=== PATIENT | female | born 1955 | race Caucasian/White ===

== ENCOUNTER → 2020-01-20 | Outpatient (CLI) | payer MEDICARE, BC ==
[~2020-01-20] MED LIST: MVI PO
== END ==
LOC: COL.RAD 11:22
DX: Q62.11 Congenital occlusion of ureteropelvic junction (principal)
CPT/HCPCS: A9562; J1940

== ENCOUNTER 2020-10-23 09:46 | Inpatient (IN) | payer MEDICARE, BC ==
[~2020-10-23] VITALS: Ht 170.2 cm; Wt 87.1 kg
[2020-10-23] MEDS ORDERED: PIQRAY1 EACH PO (13:00)
[2020-10-23] MEDS ORDERED: ELIQUIS 5MG PO (13:01)
[2020-10-23] MEDS ORDERED: HUMALOG PEN100 U/ML SQ (13:04)
[2020-10-23] MEDS ORDERED: CALCIUM CARBON650 M2 (13:05)
[2020-10-23] MEDS ORDERED: ONE-A-DAY ESSE1 EACH PO (13:06)
[2020-10-23] MEDS ORDERED: PRILOTC PO (13:07)
[2020-10-23 13:10] VITALS: BP 103/46; PULSE 79; TEMP 98.2
[2020-10-23 14:31] LABS: TROPONIN-I 0.215 ng/mL (0.000-0.035)
[2020-10-23 16:38] VITALS: BP 109/41; PULSE 80; TEMP 98.2
[2020-10-23 17:22] LABS: COLLECTION METHOD CLEAN CATCH
[2020-10-23 18:24] LABS: INR 1.7 (0.8-3.0); PROTHROMBIN TIME 19.5 SECONDS (9.7-12.8)
[2020-10-23 18:42] LABS: BUDDING YEAST Present /hpf; MUCOUS Present /lpf; PH 5 (5-8); SQUAMOUS EPITHELIAL 0-2 /hpf; URINE APPEARANCE Turbid; URINE BACTERIA None Seen /hpf; URINE BILIRUBIN Negative (NEGATIVE); URINE BLOOD 3+ (NEGATIVE); URINE CALCIUM OXALATE CRYSTAL Present /hpf; URINE COLOR Yellow; URINE GLUCOSE 1+ (NEGATIVE); URINE KETONE Negative (NEGATIVE); URINE LEUKOCYTE ESTERASE 3+ (NEGATIVE); URINE NITRATE Negative (NEGATIVE); URINE PROTEIN(semi-quant) 1+ (NEGATIVE); URINE UROBILINOGEN Negative (NEGATIVE)
[2020-10-23 19:30] VITALS: BP 104/50; PULSE 99; TEMP 99.1
--- NOTE | 2020-10-23 20:00 | NUR ---
PT ASSISTED TO BATHROOM AND BACK TO BED. PT A/O X3, HOB ELEVATED TO 60 DEGREE ANGLE. PT DENIES PAIN OR DISCOMFORT AND HAS PERSONAL BELONGINGS WITHIN REACH.
--- NOTE | 2020-10-23 21:51 | NUR ---
CRITICAL LAB VALUE: NOTIFIED LYNNETTE LYLE THAT PT'S TROPONIN IS 0.201. NO NEW ORDERS GIVEN.
[2020-10-23 23:30] VITALS: BP 97/42; PULSE 96; TEMP 98.5
[2020-10-24 03:30] VITALS: BP 124/49; PULSE 84; TEMP 98
--- NOTE | 2020-10-24 07:30 | NUR ---
SHIFT SUMMARY: AT THE BEGINNING OF SHIFT THE PT HAD CHILLS AND WAS COLD, BUT AFTER ABOUT AN HOUR SHE WAS FINE. PT DID GET UP TO THE BATHROOM AND HER GAIT WAS STEADY. NO C/O PAIN OR DISCOMFORT. PT ADVISED THAT SHE FELT MUCH BETTER THIS MORNING THAN SHE HAD. NO ISSUES OR CONCERNS.
--- NOTE | 2020-10-24 07:30 | NUR ---
PT AT PROCEEDURE. DR. ALCARAZ IN TO SEE PT. WILL COME BACK TOMORROW TO ROUND ON PT. SEE EMAR FOR NEW ORDERS.
[2020-10-24 08:12] VITALS: BP 112/56; PULSE 75; TEMP 97.9
--- NOTE | 2020-10-24 09:53 | NUR ---
SHAVONNE met with the patient to discuss discharge plan. The patient lives in [place] with her , Abraham ([phone]). She reports independence with ADLs and does not have any DME. The patient's primary care provider is Mckenna Kendrick APRN and she receives her medications from [facility]. She reports no difficulties obtaining her meds. The patient does not have a DPOA-HC, but she was interested in obtaining a form. SHAVONNE provided. The patient plans to return home with her upon discharge. No additional needs at this time.
[2020-10-24 10:48] LABS: BASO % 0.5 % (0.0-2.0); EOS # 0.4 (0.0-0.7); GRAN # 6.8 (1.4-6.5); GRAN % 77.3 % (42.2-75.2); LYMPH # 0.8 (1.2-3.4); MEAN CELL VOLUME 101 fl (80.0-100.0); MEAN CORPUSCULAR HGB CONC 34 g/dl (33.0-37.0); MEAN PLATELET VOLUME 9.4 fl (7.4-10.4); MONO # 0.6 (0.1-0.6); MONO % 6.8 % (1.7-9.3); PLATELET COUNT 115 K/mm3 (130-400); RED BLOOD COUNT 2.85 M/mm3 (4.10-5.30); REDCELL DISTRIBUTION WIDTH-CV 13.5 % (11.5-14.5)
[2020-10-24 10:49] LABS: HEMATOCRIT 28.8 % (37.0-47.0); HEMOGLOBIN 9.8 g/dl (12.5-16.0); MEAN CORPUSCULAR HEMOGLOBIN 34 pg (27.0-31.0)
[2020-10-24 10:59] LABS: ALBUMIN 2.5 gm/dL (3.5-5.0); BILIRUBIN,TOTAL 0.7 mg/dL (0.0-1.0); CALCIUM 6.4 mg/dL (8.4-10.2); CREATININE, serum 1.07 (0.52-1.25); POTASSIUM 3.1 mmol/L (3.4-5.0)
[2020-10-24 11:13] VITALS: BP 111/50; PULSE 74; TEMP 97.6
[2020-10-24 11:14] LABS: TROPONIN-I 0.093 ng/mL (0.000-0.035)
--- NOTE | 2020-10-24 11:19 | NUR ---
PT BACK FROM [facility]. CALLED AND SPOKE WITH PATIENT.
--- NOTE | 2020-10-24 11:22 | NUR ---
First visit from the structural rigger. No needs right now.
[2020-10-24 16:03] VITALS: BP 134/70; PULSE 70; TEMP 98
[2020-10-24 20:31] VITALS: BP 135/61; PULSE 81; TEMP 98.1
--- NOTE | 2020-10-24 22:30 | NUR ---
Pt. sitting up in bed at this time. Pt. is A&OX3, assessment complete. IV to lt. chest port patent, IV fluids infusing per orders. Pt. denies pain or other needs, call light within reach.
[2020-10-24 23:59] VITALS: BP 162/82; PULSE 91; TEMP 97.8
[2020-10-25] VITALS (11 sets, daily range): BP systolic 120–158; BP diastolic 59–91; PULSE 77–105; TEMP 97.6–98.2
[2020-10-25 06:28] LABS: BASO % 0.3 % (0.0-2.0); EOS # 0.6 (0.0-0.7); GRAN % 71.5 % (42.2-75.2); LYMPH # 0.7 (1.2-3.4); LYMPH % 10.4 % (20.0-51.0); MEAN CELL VOLUME 100 fl (80.0-100.0); MEAN CORPUSCULAR HGB CONC 34 g/dl (33.0-37.0); MEAN PLATELET VOLUME 9.2 fl (7.4-10.4); MONO # 0.6 (0.1-0.6); MONO % 7.9 % (1.7-9.3); PLATELET COUNT 128 K/mm3 (130-400); RED BLOOD COUNT 2.84 M/mm3 (4.10-5.30); REDCELL DISTRIBUTION WIDTH-CV 13.5 % (11.5-14.5)
[2020-10-25 06:35] LABS: ALBUMIN 2.6 gm/dL (3.5-5.0); BILIRUBIN,TOTAL 0.6 mg/dL (0.0-1.0); CALCIUM 7.3 mg/dL (8.4-10.2); CREATININE, serum 0.94 (0.52-1.25); MAGNESIUM 1.7 mg/dL (1.6-2.3); POTASSIUM 3.3 mmol/L (3.4-5.0); TOTAL PROTEIN 5.1 gm/dL (6.4-8.2)
[2020-10-25 06:37] LABS: HEMATOCRIT 28.4 % (37.0-47.0); HEMOGLOBIN 9.7 g/dl (12.5-16.0); MEAN CORPUSCULAR HEMOGLOBIN 34 pg (27.0-31.0)
[2020-10-25 06:39] LABS: INR 1.2 (0.8-3.0); PROTHROMBIN TIME 13.4 SECONDS (9.7-12.8)
--- NOTE | 2020-10-25 19:22 | NUR ---
Patient resting in bed. She did well post Latanya scan. Cleared for surgery. rounded this afternoon & orders obtained. Consent obtained. Patient recieved Lovenox dose after okayed by . She has tolerated clears without nausea & aware of NPO at midnight. K+ replaced. Ivf infusing via POrt to right chest. Telephone Surveyor assisted patient with Hygiene. new gown. Patient has been up to the bathroom independently & voided without troubles & did report a few loose stools that have improved. Bedside report to [facility]
--- NOTE | 2020-10-25 20:30 | NUR ---
Pt. sitting up in bed. Pt. is A&OX3, assessment complete. INT to rt. hand patent. Port to lt. chest patent, IV fluids infusing per orders. Pt. denies pain or other needs, call light within reach.
[2020-10-26] VITALS (11 sets, daily range): BP systolic 139–176; BP diastolic 63–87; PULSE 66–98; TEMP 97.8–98.8
--- NOTE | 2020-10-26 12:55 | NUR ---
Patient to the Or with William almodovar. Ivf to gravity, NS per orders. Patient blood sugar stable. Traffic And Transport Planner assisted patient with hygiene prior to OR. Jewlery off. K+ replaced per orders. Patietn up to the bathroom & voided. She report her loose stools have resolved.
--- NOTE | 2020-10-26 19:45 | NUR ---
Pt. sitting up in bed at this time. Pt. is A&OX3, assessment complete INT to rt. hand patent. Port to lt. chest patent, IV fluids infusing per orders. Abd. lap sites x4 with bandaids, CDI. Pt. denies pain or other needs, call light within reach.
--- NOTE | 2020-10-26 20:00 | NUR ---
Patient resting in bed. Feeling better now post op. Pain is slightly better manged, does not want anymore more medication. She was thankful for the low fat diet, she has not ate in days. Vss post op on room air. She is hoping to discharge home tmrw and be home for the new year
[2020-10-27 04:39] VITALS: BP 141/78; PULSE 86; TEMP 97.4
[2020-10-27 06:56] LABS: MEAN CELL VOLUME 99 fl (80.0-100.0); MEAN CORPUSCULAR HGB CONC 34 g/dl (33.0-37.0); MEAN PLATELET VOLUME 9.6 fl (7.4-10.4); PLATELET COUNT 164 K/mm3 (130-400); RED BLOOD COUNT 2.81 M/mm3 (4.10-5.30); REDCELL DISTRIBUTION WIDTH-CV 13.5 % (11.5-14.5)
[2020-10-27 07:01] LABS: ALBUMIN 2.7 gm/dL (3.5-5.0); BILIRUBIN,TOTAL 0.5 mg/dL (0.0-1.0); CALCIUM 6.8 mg/dL (8.4-10.2); CREATININE, serum 0.81 (0.52-1.25); MAGNESIUM 1.6 mg/dL (1.6-2.3); POTASSIUM 4.1 mmol/L (3.4-5.0); TOTAL PROTEIN 5.3 gm/dL (6.4-8.2)
[2020-10-27 07:08] LABS: HEMATOCRIT 27.7 % (37.0-47.0); HEMOGLOBIN 9.4 g/dl (12.5-16.0); MEAN CORPUSCULAR HEMOGLOBIN 33 pg (27.0-31.0)
[2020-10-27 07:40] VITALS: BP 153/77; PULSE 86; TEMP 97.9
[2020-10-27 07:42] LABS: BAND 8 % (0-10); LYMPHOCYTE 12 % (20.0-51.0); METAMYELOCYTE 3 % (0-0); NEUTROPHILS 67 % (42.0-75.2); PLATELET ESTIMATE NORMAL (NORMAL)
--- NOTE | 2020-10-27 08:26 | NUR ---
PATIENT SHIFT ASSESSMENT COMPLETED AT THIS TIME. 1+ PITTING EDEMA TO ANKLES BILATERALLY. POSITIVE PEDAL PULSES EQUAL BILATERALLY. ABDOMINAL LAP SITES X4 CD&I AND COVERED WITH BANDAIDS. PATIENT INDEPENDENT IN THE ROOM. VSS. CALL LIGHT IN REACH. PATIENT DENIES ANY OTHER NEEDS AT THIS TIME.
[2020-10-27] MEDS ORDERED: AMOXICILLIN 8751 TAB PO (08:41)
[2020-10-27] MEDS ORDERED: NORCO 325 MG-51 TAB PO (10:00)
[2020-10-27 11:19] VITALS: BP 137/78; PULSE 85; TEMP 97.9
--- NOTE | 2020-10-27 13:18 | NUR ---
The patient is to discharge back home with her today, 10/27. SW met with the patient and presented and read the IM form outloud to the patient. The patient verbalized understanding and gave SW approval to sign the form on her behalf. SW provided her a copy.
--- NOTE | 2020-10-27 14:15 | NUR ---
RIGHT WRIST INT DISCONTINUED PER PENDING DISCHARGE. TIP INTACT. PATIENT TOLERATED WELL. LEFT CHEST PORTACATH HEPARINIZED AND DEACCESSED PER PROTOCOL. DISCHARGE INSTRUCTIONS REVIEWED WITH PATIENT. QUESTIONS SOUGHT AND ANSWERED. PATIENT AWAITING RIDE FOR DISCHARGED.
--- NOTE | 2020-10-27 15:15 | NUR ---
PATIENT PERSONAL BELONGINGS GATHERED. PATIENT TAKEN TO PERSONAL VEHICLE VIA WHEELCHAIR BY SURGICAL STAFF. PATIENT DISCHARGED.
== END 2020-10-27 15:15 | disposition home or self-care (01) | DRG 853 ==
LOC: MEDICAL 09:46 → SURG 12:48
PROVIDERS: Internal Medicine; Physician Assistant; Student in an Organized Health Care Education/Training Program; Surgery; ADMIT Hospitalist
PROC: 8E0W4CZ Robotic Assisted Procedure of Trunk Region, Percutaneous Endoscopic Approach (ICD-10-PCS; 2020-10-26)
PROC: 0FT44ZZ Resection of Gallbladder, Percutaneous Endoscopic Approach (ICD-10-PCS; principal; 2020-10-26 13:30)
DX: A41.9 Sepsis, unspecified organism (principal); I21.A1 Myocardial infarction type 2; K80.00 Calculus of gallbladder with acute cholecystitis without obstruction; N17.9 Acute kidney failure, unspecified; C79.51 Secondary malignant neoplasm of bone; J90 Pleural effusion, not elsewhere classified; E87.6 Hypokalemia; E83.42 Hypomagnesemia; I10 Essential (primary) hypertension; D64.9 Anemia, unspecified; R00.0 Tachycardia, unspecified; K21.9 Gastro-esophageal reflux disease without esophagitis; R73.9 Hyperglycemia, unspecified; R19.7 Diarrhea, unspecified; J30.9 Allergic rhinitis, unspecified; Z79.01 Long term (current) use of anticoagulants; Z79.899 Other long term (current) drug therapy; Z85.3 Personal history of malignant neoplasm of breast; Z86.711 Personal history of pulmonary embolism
CPT/HCPCS: 99223-AI; 99232-AI; 99233-AI; 99239; A9500; A9537; J0330; J1100; J1170; J1650; J2270; J2405; J2543; J2550; J2704; J2785; J3010; J3370; J3475; J3480; J7030; J7050